=== PATIENT | male | born 1990 | race Caucasian/White ===

== ENCOUNTER 2022-07-18 13:36 | Outpatient (AMB) | payer OTHER, SELFPAY ==
[2022-07-18 13:38] VITALS: BP 118/72; PULSE 82; TEMP 36.1; O2SAT 97; BMI 26.9
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
== END 2022-07-18 14:41 | disposition home or self-care (01) ==
LOC: HO.HMGH 13:36
PROVIDERS: PCP Internal Medicine; Visit Provider Internal Medicine
DX: Z00.00 Encounter for general adult medical examination without abnormal findings (principal); M51.16 Intervertebral disc disorders with radiculopathy, lumbar region; E66.3 Overweight
CPT/HCPCS: 99385

== ENCOUNTER 2022-07-22 11:53 | Outpatient (REF) | payer OTHER, SELFPAY ==
[2022-07-22 12:17] LABS: MANUAL DIFF FLAG NO
[2022-07-22 13:53] LABS: Basophils Absolute Auto 0.1 X10*3/uL (0.0-0.2); Eosinophils Absolute Auto 0.4 X10*3/uL (0.0-0.4); Eosinophils Percent Auto 7.1 % (0-4); Hematocrit 42.3 % (42.0-52.0); Hemoglobin 14.9 g/dl (14.0-18.0); Imm Gran Abs Auto 0.01 X10*3/uL (0.00-0.03); Imm Gran Pct Auto 0.2 % (0.0-0.4); Lymphocytes Absolute Auto 1.8 X10*3/uL (1.2-4.9); Mean Corpuscular HGB Conc 35.2 g/dl (31.0-36.0); Mean Corpuscular Hemoglobin 29.5 pg (27.0-33.0); Mean Corpuscular Volume 83.8 fL (80.0-98.0); Mean Platelet Volume 9.6 fL (9.4-12.4); Monocytes Absolute Auto 0.5 X10*3/uL (0.1-1.2); Monocytes Percent Auto 8.7 % (2-11); Platelet Count 317 X10*3/uL (160-400); Red Blood Count 5.05 X10*6/uL (4.60-5.80); White Blood Count 5.8 X10*3/uL (4.8-10.8)
[2022-07-22 14:37] LABS: Alanine Aminotransferase 15 U/L (0-40); Albumin Level 4.5 g/dL (3.5-5.0); Alkaline Phosphatase 74 U/L (39-117); Anion Gap 13 (12-20); Aspartate Amino Transferase 15 U/L (5-37); Blood Urea Nitrogen 12 mg/dL (9-16); Calcium 9.4 mg/dL (8.4-10.2); Carbon Dioxide 23 mmol/L (22-29); Chloride 109 mmol/L (96-108); Cholesterol 165 mg/dL; Estimated Glomerular Filt Rate > 60; Glucose Fasting 90 mg/dL (60-99); HDL Cholesterol 35 mg/dL; LDL Cholesterol Calculated 116 mg/dl; Potassium 4.2 mmol/L (3.3-5.1); Sodium 141 mmol/L (135-145); Total Protein 7.1 g/dL (6.5-8.0); Triglycerides 71 mg/dL
[2022-07-22 14:54] LABS: Erythrocyte Sedimentation Rate 16 MM/HR (0-15)
[2022-07-22 14:56] LABS: Vitamin D 25-OH Total 30.9 ng/mL (>30)
== END 2022-07-22 11:54 | disposition home or self-care (01) ==
LOC: HO.LAB 11:53
PROVIDERS: PCP Internal Medicine; Visit Provider Internal Medicine
DX: E55.9 Vitamin D deficiency, unspecified (principal); M51.16 Intervertebral disc disorders with radiculopathy, lumbar region; E78.00 Pure hypercholesterolemia, unspecified
CPT/HCPCS: 36415; 80053; 80061; 82306; 84443; 85025; 85652

== ENCOUNTER 2022-08-17 11:01 | Outpatient (REF) | payer OTHER, SELFPAY ==
--- NOTE | ~2022-08-17 | MR_ITS ---
EXAMINATION: MR LUMBAR SPINE WITHOUT CONTRAST CLINICAL INFORMATION: Low back pain. Right leg radiculopathy. COMPARISON: MRI dated 12/07/2017. TECHNIQUE: Multiplanar, multisequence imaging was obtained. FINDINGS: VERTEBRAL BODIES AND PARASPINAL STRUCTURES: The marrow signal is homogeneous. There are no compression fractures or new subluxations. Reduced intradiscal signal and [id number] loss of disc height again evident at the L4-L5 and L5-S1 levels. The paraspinal soft tissues are unremarkable. CONUS MEDULLARIS AND CAUDA EQUINA: The distal cord, conus tip, and cauda equina nerve roots are normal. SPINAL LEVELS: L1-L2, L2-L3, and L3-L4: Well-hydrated normal appearance of the discs without central canal stenosis or foraminal narrowing. L4-L5: Disc degeneration and broad-based central disc protrusion worsened and increased in size with a small extruded component disc migrating inferiorly into the right lateral recess. Broad-based disc protrusion flattens the ventral thecal sac and compresses the L5 nerve roots bilaterally. Hypertrophic facet arthropathy again noted. Patent foramina. Mild retrosubluxation as well. L5-S1: Disc degeneration with endplate spurring again noted. Broad-based large central to left subarticular zone disc protrusion severely compresses and posteriorly displaces the left S1 nerve root, also resulting in mass effect upon the right S1 nerve root. The previous extruded component disc has resorbed since the prior study. Stable facet arthropathy. [id number] left foraminal narrowing. MR/MR lumbar spine wo con IMPRESSION: 1. Worsened broad-based central disc protrusion at the L4-L5 level with a small extruded component disc migrating inferiorly into the right lateral recess. Broad-based disc protrusion flattens the ventral thecal sac and compresses the L5 nerve roots bilaterally. 2. Chronic disc degeneration and broad-based large central to left subarticular zone disc protrusion at L5-S1 with significant compression and posterior displacement of the left S1 nerve root and mass effect upon the right S1 nerve root. The previous extruded component disc has resorbed since the prior study.
== END 2022-08-17 11:02 | disposition home or self-care (01) ==
LOC: HO.MRI 11:01
PROVIDERS: PCP Internal Medicine; Visit Provider Internal Medicine
DX: M51.16 Intervertebral disc disorders with radiculopathy, lumbar region (principal)
CPT/HCPCS: 72148

== ENCOUNTER 2022-12-28 12:37 | Outpatient (AMB) | payer OTHER, SELFPAY ==
--- NOTE | 2022-12-28 12:39 | A.OFFPC_ITS ---
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 Required: No Accompanied by: Self / Same As Patient Allergies No Known Allergies Allergy (Verified 12/28/22 14:03) Medication List - Last Reconciled 12/28/22 by Yang Carter MD No Known Home Meds Tobacco use date assessed: 12/28/22 Dental Screening Dental Screen Date: 12/28/22 Did you have a dental visit in the last 12 months?: Yes Did you have a dental problem in the last 6 months where you did not have access to dental care?: No Was dental information given to patient?: Patient has dentist HPI lumbar disc disease HPI Details Patient comes in today for his follow up visit States that his previous increased low back pain with right-sided radiation into his right lower extremity seem to have subsided all of a sudden a few weeks ago and he has not had to wear his back brace/belt lately Would like to know if his repeat lumbar spine MRI done a few months ago showed any changes or progression in his disc herniation Recalls that he was seen by Dr. Flores for the same issue sometime back in 2017 and he was advised no surgery at the time; is hoping that he can continue to avoid any surgery Would also like to know how he did on his labs done back in July 2022; states that he looked at his results on his patient portal a few months ago and there were a couple of numbers that he does not understand States that he feels okay otherwise He denies any headaches or dizziness Denies any chest pains, no SOB No nausea/vomiting, no abdominal pain No change in bowel habits noted PFSH Medical History Lumbar disc herniation with radiculopathy Surgical History No pertinent past surgical history Family History Mother No problems noted. Father No problems noted. Social History Housing: House Patient Tobacco Use Status: Never used Tobacco service: No Current occupational status: employed Cognitive needs: No Hearing needs: No Vision needs: No Questionnaire PHQ-9 Over the last 2 weeks, how often have you been bothered by any of the following problems? 1. Little interest or pleasure in doing things: not at all 2. Feeling down, depressed, or hopeless: not at all 3. Trouble falling or staying asleep, or sleeping too much: not at all 4. Feeling tired or having little energy: not at all 5. Poor appetite or overeating: not at all 6. Feeling bad about yourself - or that you are a failure or have let yourself or your family down: not at all 7. Trouble concentrating on things, such as reading the newspaper or watching television: not at all 8. Moving or speaking so slowly that other people could have noticed. Or the opposite - being so fidgety or restless that you have been moving around a lot more than usual: not at all 9. Thoughts that you would be better off or of hurting yourself in some way: not at all Total score: 0 Depression Screening Interpretation: Negative 57809 - PHQ-9 Billing: Yes Source: Developed by Drs. Lee Quijano, Chantell Thakkar, Rodney Gardner and colleagues, with an educational alcira from [employer]. Thrive Questionnaire Date Thrive assessed: 12/28/22 I am a: Patient What is your living situation today?: I have a steady place to live Within the past 12 months, did the food you bought not last and you didn't have the money to get more?: Never true Within the past 12 months, did you worry whether your food would run out before you got money to buy more?: Never true Do you have trouble paying for medicines?: No Do you have trouble getting transportation to medical appointments?: No Do you have trouble paying your heating and electricity bill?: No Do you have trouble taking care of your child, family member or friend?: No Do you have trouble with day-to-day activities such as bathing, preparing meals, shopping, managing finances, etc.?: No Are you currently unemployed and looking for a job?: No Are you interested in more education?: No Please select the resources that you would like help with: None Currently or been in a relationship where the following occur: no concerns reported AUDIT C Alcohol Use Questionnaire (AUDIT-C) 1. How often do you have a drink containing alcohol?: Never 2. How many drinks containing alcohol do you have on a typical day when you are drinking?: 1 or 2 3. How often do you have six or more drinks on one occasion?: Never Total Score: 0 Score Reviewed/Action Taken: Yes ANUP-7 AMB Questionnaire ANUP-7 Date ANUP - 7 assessed: 12/28/22 Feeling nervous, anxious, or on edge: 0 = Not at all Not being able to stop or control worryin = Not at all Worrying too much about different things: 0 = Not at all Trouble relaxin = Not at all Being so restless that it is hard to sit still: 0 = Not at all Becoming easily annoyed or irritable: 0 = Not at all Feeling afraid as if something awful might happen: 0 = Not at all Total ANUP-7 score (0-4 normal; 5-9 mild; 10-14 moderate; 15-21 severe): 0 Source: Developed by Drs. Lee Quijano, Chantell Thakkar, Rodney Gardner and colleagues, with an educational alcira from [employer]. Review of Systems Const Denies chills, Denies fatigue, Denies fever(s) and Denies headache(s) ENT Denies dysphagia, Denies dizziness, Denies otalgia, Denies headache(s), Denies neck pain, Denies odynophagia and Denies sore throat Card Denies chest pain, Denies palpitations and Denies dyspnea Resp Denies cough and Denies dyspnea GI Denies abdominal pain, Denies constipation, Denies dysphagia, Denies heartburn, Denies diarrhea, Denies nausea, Denies odynophagia and Denies vomiting Denies dysuria, Denies nocturia and Denies urinary frequency Musc Reports back pain (over the lower back but notes that this has subsided a lot lately), Denies muscle weakness, Denies neck pain and Reports radiating pain into limb (right leg - this has also calmed down a lot over the past few weeks) Neuro Denies dizziness and Denies headache(s) Endo Denies fatigue and Denies palpitations Physical exam (Primary Care) Vital Signs: Last Vital Signs Pulse 67 12/28/22 12:40 BP 110/92 H 12/28/22 12:40 Pulse Ox 98 12/28/22 12:40 Oxygen Delivery Method Room Air 12/28/22 12:40 BMI result Body Mass Index 26.9 Tobacco/Smoking Status: Tobacco use Status Tobacco use date assessed 12/28/22 12/28/22 12:44 Patient Tobacco Use Status Never used Tobacco 12/28/22 12:44 PHQ-9: PHQ-9 Score PHQ-9: Total score 0 12/28/22 12:46 Depression Screening Interpretation: Negative Thrive Assessment: Date of Thrive Assessment Date Thrive assessed 12/28/22 12/28/22 12:44 Currently or been in a relationship where the following occur: no concerns reported Const General: no acute distress and alert Neck Neck: Yes no lymphadenopathy and Yes supple Resp Auscultation: clear to auscultation bilaterally, no rales and no wheezes Cardio Rate: regular rate Rhythm: regular rhythm Heart sounds: no murmurs GI Palpation (GI): Soft to palpation and nontender Auscultation: normal bowel sounds Back/Spine/Pelvis Thoracic/Lumbar Spine: lumbar spinal tenderness and straight leg raise positive (slightly) right Skin Rashes: no rashes Extrem General: Yes no clubbing, cyanosis or edema Results Reviewed Results Reviewed: Laboratory Tests 07/22/22 12:10 WBC 5.8 Hgb 14.9 Hct 42.3 Plt Count 317 ESR 16 H Sodium 141 Potassium 4.2 Creatinine 1.06 Estimated GFR > 60 Fasting Glucose 90 Calcium 9.4 AST 15 ALT 15 Triglycerides 71 Cholesterol 165 LDL Cholesterol, Calc 116 HDL Cholesterol 35 25-OH Vitamin D Total 30.9 TSH 1.20 Assessment and Plan Assessment & Plan (1) Lumbar disc herniation with radiculopathy: Code(s): M51.16 - Intervertebral disc disorders with radiculopathy, lumbar region Plan: Results of his repeat lumbar spine MRI done in August 2022 reviewed and discussed with patient MRI revealed worsened broad-based central disc protrusion at the L4-L5 level with a small extruded component disc migrating inferiorly into the right lateral recess. Broad-based disc protrusion flattens the ventral thecal sac and compresses the L5 nerve roots bilaterally. There are chronic disc degeneration and broad-based large central to left subarticular zone disc protrusion at L5-S1 with significant compression and posterior displacement of the left S1 nerve root and mass effect upon the right S1 nerve root. The previous extruded component disc has resorbed since the prior study Patient states that his lower back and radicular symptoms have actually subsided a lot over the past few weeks and he does not need anything else at this time Have however advised that based on the findings on his repeat lumbar spine MRI done a few months ago, he should still see Dr. Flores again at least for a neurosurgery follow up and to see what he would recommend at this point; have reassured him that surgery seems unlikely an option at this time, especially since his symptoms have subsided - referral to return and follow up with Dr. Diana hernandez done He is reminded to bring with him his MRI disc for Dr. Flores to personally look at when he sees him for his appt Plan Results of his labs done back in July 2022 reviewed and discussed with patient - labs are mostly within normal limits To return in July 2023 for his next annual physical examination Orders: Referrals Neurosurgery Referral M51.16 - Intervertebral disc disorders with radiculopathy, lumbar region Coding Level of Care Code Est Pt Level 4 (73536) Diagnoses Lumbar disc herniation with radiculopathy M51.16
[2022-12-28 12:40] VITALS: BP 110/92; PULSE 67; O2SAT 98; BMI 26.9
== END 2022-12-28 13:33 | disposition home or self-care (01) ==
PROVIDERS: PCP Internal Medicine; Visit Provider Internal Medicine
DX: M51.16 Intervertebral disc disorders with radiculopathy, lumbar region (principal)
CPT/HCPCS: 99214

== ENCOUNTER 2023-05-16 14:20 | Outpatient (AMB) | payer OTHER, SELFPAY ==
[2023-05-16 14:22] VITALS: BP 100/64; PULSE 106; O2SAT 98; BMI 25.2
--- NOTE | 2023-05-16 14:22 | A.OFFPC_ITS ---
Vital Signs 05/16/23 14:22 Height 5 ft 10.8 in Weight 179 lb 6 oz BMI 25.2 BP 100/64 Blood Pressure Location Lt brachial Position Sitting Pulse 106 H Pulse Source Pulse Oximeter Pulse Oximetry (%) 98 Oxygen Delivery Method Room Air Intake Visit Reasons: Discuss sleep study Loan Coordinator Required: No Accompanied by: Self / Same As Patient Allergies No Known Allergies Allergy (Verified 05/22/23 01:47) Medication List - Last Reconciled 05/22/23 by Yang Carter MD No Known Home Meds Tobacco use date assessed: 05/16/23 Dental Screening Dental Screen Date: 05/16/23 Did you have a dental visit in the last 12 months?: Yes Did you have a dental problem in the last 6 months where you did not have access to dental care?: No Was dental information given to patient?: Patient has dentist HPI Discuss sleep study HPI Details Patient comes in today for his follow up visit States that he last saw Dr. Flores (neurosurgery) in January 2023 and that at the time, his low back pain has improved a lot with chiropractric Tx and he was reportedly advised to continue with conservative management for now and to just see Dr. Flores on an as-needed basis States that both his brother and mother work as sleep study technicians and he has been supposedly advised by his brother several times that he snores very heavily when he sleeps at night and that he can be often heard down the other side of the hallway even through closed doors, and he was recommended to get a sleep study done to check for sleep apnea Patient states that he often has trouble sleeping at night and has been smoking weed every night to help him sleep for a while now He relates (+) fatigue often but he was attributing it more to his trouble sleeping at night He denies any headaches or dizziness Denies any chest pains, no SOB No nausea/vomiting, no abdominal pain No change in bowel habits noted [facility] Medical History Overweight (BMI 25.0-29.9) Lumbar disc herniation with radiculopathy Surgical History No pertinent past surgical history Family History Mother No problems noted. Father No problems noted. Social History Housing: House Patient Tobacco Use Status: Never used Tobacco e-Cigarette/Vaping Use: Never Used service: No Current occupational status: employed Cognitive needs: No Hearing needs: No Vision needs: No Questionnaire PHQ-9 Over the last 2 weeks, how often have you been bothered by any of the following problems? 1. Little interest or pleasure in doing things: not at all 2. Feeling down, depressed, or hopeless: not at all 3. Trouble falling or staying asleep, or sleeping too much: not at all 4. Feeling tired or having little energy: not at all 5. Poor appetite or overeating: not at all 6. Feeling bad about yourself - or that you are a failure or have let yourself or your family down: not at all 7. Trouble concentrating on things, such as reading the newspaper or watching television: not at all 8. Moving or speaking so slowly that other people could have noticed. Or the opposite - being so fidgety or restless that you have been moving around a lot more than usual: not at all 9. Thoughts that you would be better off or of hurting yourself in some way: not at all Total score: 0 Depression Screening Interpretation: Negative Depression Screening Done: Yes 53522 - PHQ-9 Billing: Yes Source: Developed by Drs. Lee Quijano, Chantell Thakkar, Rodney Gardner and colleagues, with an educational alcira from [employer]. Thrive Questionnaire Date Thrive assessed: 05/16/23 I am a: Patient What is your living situation today?: I have a steady place to live Within the past 12 months, did the food you bought not last and you didn't have the money to get more?: Never true Within the past 12 months, did you worry whether your food would run out before you got money to buy more?: Never true Do you have trouble paying for medicines?: No Do you have trouble getting transportation to medical appointments?: No Do you have trouble paying your heating and electricity bill?: No Do you have trouble taking care of your child, family member or friend?: No Do you have trouble with day-to-day activities such as bathing, preparing meals, shopping, managing finances, etc.?: No Are you currently unemployed and looking for a job?: No Are you interested in more education?: No Please select the resources that you would like help with: None Currently or been in a relationship where the following occur: no concerns reported THRIVE Score: 0 AUDIT C Alcohol Use Questionnaire (AUDIT-C) 1. How often do you have a drink containing alcohol?: Never 2. How many drinks containing alcohol do you have on a typical day when you are drinking?: 1 or 2 3. How often do you have six or more drinks on one occasion?: Never Total Score: 0 Score Reviewed/Action Taken: Yes ANUP-7 AMB Questionnaire ANUP-7 Date ANUP - 7 assessed: 05/16/23 Feeling nervous, anxious, or on edge: 0 = Not at all Not being able to stop or control worryin = Not at all Worrying too much about different things: 0 = Not at all Trouble relaxin = Not at all Being so restless that it is hard to sit still: 0 = Not at all Becoming easily annoyed or irritable: 0 = Not at all Feeling afraid as if something awful might happen: 0 = Not at all Total ANUP-7 score (0-4 normal; 5-9 mild; 10-14 moderate; 15-21 severe): 0 Source: Developed by Drs. Lee Quijano, Chantell Thakkar, Rodney Gardner and colleagues, with an educational alcira from [employer]. Review of Systems Const Denies chills, Reports difficulty sleeping (wakes up often in middle of night for no particular reason), Reports fatigue, Denies fever(s) and Denies headache(s) ENT Denies dysphagia, Denies dizziness, Denies otalgia, Denies headache(s), Denies neck pain, Denies odynophagia and Denies sore throat Card Denies chest pain, Denies palpitations and Denies dyspnea Resp Denies cough and Denies dyspnea GI Denies abdominal pain, Denies constipation, Denies dysphagia, Denies heartburn, Denies diarrhea, Denies nausea, Denies odynophagia and Denies vomiting Denies dysuria, Denies nocturia and Denies urinary frequency Musc Reports back pain (on and off, over the lower back) and Denies neck pain Skin/Breast Denies rash Neuro Denies dizziness and Denies headache(s) Endo Reports fatigue and Denies palpitations Physical exam (Primary Care) Vital Signs: Last Vital Signs Pulse 106 H 05/16/23 14:22 BP 100/64 05/16/23 14:22 Pulse Ox 98 05/16/23 14:22 Oxygen Delivery Method Room Air 05/16/23 14:22 BMI result Body Mass Index 25.2 Tobacco/Smoking Status: Tobacco use Status Tobacco use date assessed 05/16/23 05/16/23 14:28 Patient Tobacco Use Status Never used Tobacco 05/16/23 14:28 e-Cigarette/Vaping Use Never Used 05/16/23 14:28 PHQ-9: PHQ-9 Score PHQ-9: Total score 0 05/16/23 15:13 Depression Screening Interpretation: Negative Thrive Assessment: Date of Thrive Assessment Date Thrive assessed 05/16/23 05/16/23 14:28 Currently or been in a relationship where the following occur: no concerns reported Const General: no acute distress and alert HENMT Ears: TM's normal bilaterally and EAC's normal Throat: Yes posterior oropharynx normal and Yes tonsils normal (no TP congestion) Neck Neck: Yes no lymphadenopathy and Yes supple Resp Auscultation: clear to auscultation bilaterally, no rales and no wheezes Cardio Rate: regular rate Rhythm: regular rhythm Heart sounds: no murmurs GI Palpation (GI): Soft to palpation and nontender Auscultation: normal bowel sounds General: Yes no CVA tenderness Back/Spine/Pelvis Back: no CVA tenderness Thoracic/Lumbar Spine: lumbar spinal tenderness Skin Rashes: no rashes Extrem General: Yes no clubbing, cyanosis or edema Assessment and Plan Assessment & Plan (1) Witnessed apneic spells: Code(s): R06.81 - Apnea, not elsewhere classified Plan: Patient scored 5 on his STOP-Bang questionnaire - high risk for RAFAEL Will refer him for a sleep study for further evaluation (2) Lumbar disc herniation with radiculopathy: Code(s): M51.16 - Intervertebral disc disorders with radiculopathy, lumbar region Plan: Repeat lumbar spine MRI done in August 2022 revealed worsened broad-based central disc protrusion at the L4-L5 level with a small extruded component disc migrating inferiorly into the right lateral recess. Broad-based disc protrusion flattens the ventral thecal sac and compresses the L5 nerve roots bilaterally. There are chronic disc degeneration and broad-based large central to left subarticular zone disc protrusion at L5-S1 with significant compression and posterior displacement of the left S1 nerve root and mass effect upon the right S1 nerve root. The previous extruded component disc has resorbed since the prior study Patient states that his lower back and radicular symptoms have subsided significantly lately He was seen by neurosurgery (Dr. Flores) in January 2023 and as his low back pain has improved a lot with chiropractric Tx at the time, he was advised to continue with conservative management for now and to just see Dr. Flores on an as-needed basis (3) Overweight (BMI 25.0-29.9): Code(s): E66.3 - Overweight Plan: Reinforced diet and weight loss; exercise as tolerated Plan To return as scheduled in July 2023 for his annual physical examination Orders: Orders RT PSG in-lab sleep study 05/16/23 R06.81 - Apnea, not elsewhere classified Coding Level of Care Code Est Pt Level 3 (41549) Diagnoses Witnessed apneic spells R06.81 Lumbar disc herniation with radiculopathy M51.16 Overweight (BMI 25.0-29.9) E66.3
== END 2023-05-16 15:18 | disposition home or self-care (01) ==
PROVIDERS: PCP Internal Medicine; Visit Provider Internal Medicine
DX: R06.81 Apnea, not elsewhere classified (principal); M51.16 Intervertebral disc disorders with radiculopathy, lumbar region; E66.3 Overweight
CPT/HCPCS: 99213

== ENCOUNTER 2023-07-11 16:00 | Outpatient (AMB) | payer OTHER, SELFPAY ==
--- NOTE | 2023-07-11 16:03 | MHC.PC.OV ---
Vital Signs 07/11/23 16:04 Height 5 ft 10.8 in Weight 181 lb 4 oz BMI 25.4 BP 110/64 Blood Pressure Location Lt brachial Position Sitting Pulse 94 Pulse Source Pulse Oximeter Pulse Oximetry (%) 97 Oxygen Delivery Method Room Air Intake Visit Reasons: PE Intake Note: Patient is here today for a physical. 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 Required: No Shipsmith: Not Required per policy Accompanied by: Self / Same As Patient Allergies No Known Allergies Allergy (Verified 07/11/23 16:54) Medication List - Last Reconciled 07/11/23 by Yang Carter MD No Known Home Meds Tobacco use date assessed: 07/11/23 Dental Screening Dental Screen Date: 05/16/23 Did you have a dental visit in the last 12 months?: No Did you have a dental problem in the last 6 months where you did not have access to dental care?: No Was dental information given to patient?: No HPI PE HPI Details Patient comes in today for his annual physical examination States that he is still experiencing recurrent low back pain He has been going to a chiropractor regularly for treatments lately and states that the treatments have been helping him Recalls that he was seen by neurosurgery in January 2023 for his low back pain and states that Dr. Flores recommended conservative therapy for now and referred to [facility] for physical therapy States that he has not yet started with physical therapy but would like to get a referral to go to PT at [facility] instead States that he feels okay otherwise He denies any headaches or dizziness Denies any chest pains, no SOB No nausea/vomiting, no abdominal pain No change in bowel habits noted He denies any acute urinary symptoms Also during his last visit a couple of months ago, he reported that both his brother and mother work as sleep study technicians and he has been supposedly advised by his brother multiple times that he snores very heavily when he sleeps at night and that he can be often heard down the other side of the hallway even through closed doors, and he was recommended to get a sleep study done to check for sleep apnea A home sleep study was ordered at the time but this was turned down by his insurance and he would like to know what would be his next step now to try to get checked for RAFAEL [facility] Medical History Overweight (BMI 25.0-29.9) Lumbar disc herniation with radiculopathy Surgical History No pertinent past surgical history Family History (Updated 07/11/23 @ 16:03 by AYAAN Dunn) Mother No problems noted. Father No problems noted. Social History Housing: House Patient Tobacco Use Status: Never used Tobacco e-Cigarette/Vaping Use: Never Used Second Hand Smoke Exposure: No service: No Current occupational status: employed Cognitive needs: No Hearing needs: No Vision needs: No Questionnaire Thrive Questionnaire Date Thrive assessed: 05/16/23 ANUP-7 AMB Questionnaire ANUP-7 Date ANUP - 7 assessed: 05/16/23 Source: Developed by Drs. Lee Quijano, Chantell Thakkar, Rodney Gardner and colleagues, with an educational alcira from [employer]. Review of Systems Const Denies chills, Reports difficulty sleeping (wakes up often in middle of night for no particular reason), Reports fatigue, Denies fever(s) and Denies headache(s) Eyes Denies blurry vision, Denies change in vision, Denies irritation and Denies itchy eyes ENT Denies dysphagia, Denies dizziness, Denies otalgia, Denies headache(s), Denies neck pain, Denies odynophagia and Denies sore throat Card Denies chest pain, Denies palpitations and Denies dyspnea Resp Denies cough, Denies dyspnea and Denies wheezing GI Denies abdominal pain, Denies constipation, Denies dysphagia, Denies heartburn, Denies diarrhea, Denies nausea, Denies odynophagia and Denies vomiting Denies dysuria, Denies nocturia and Denies urinary frequency Musc Reports back pain (on and off, over the lower back) and Denies neck pain Skin/Breast Denies rash Neuro Denies dizziness and Denies headache(s) Psych Denies anxiety Endo Reports fatigue and Denies palpitations Aller/Immun Denies itchy eyes and Denies wheezing Physical exam (Primary Care) Vital Signs: Last Vital Signs Pulse 94 07/11/23 16:04 BP 110/64 07/11/23 16:04 Pulse Ox 97 07/11/23 16:04 Oxygen Delivery Method Room Air 07/11/23 16:04 BMI result Body Mass Index 25.4 Tobacco/Smoking Status: Tobacco use Status Tobacco use date assessed 07/11/23 07/11/23 16:08 Patient Tobacco Use Status Never used Tobacco 07/11/23 16:08 e-Cigarette/Vaping Use Never Used 07/11/23 16:08 Thrive Assessment: Date of Thrive Assessment Date Thrive assessed 05/16/23 07/11/23 16:08 Const General: no acute distress and alert Orientation/consciousness: patient oriented x3 HENMT Head: Yes normocephalic and Yes atraumatic Ears: TM's normal bilaterally and EAC's normal General nose exam: No nasal discharge present Face and sinus: Yes normal facial exam and Yes sinuses nontender Teeth and gingiva: dentition normal Throat: Yes posterior oropharynx normal and Yes tonsils normal (no TP congestion) Eyes Eyelids: Yes eyelids normal Conjunctivae: conjunctivae normal Pupils: Equal, round and reactive pupils present EOM: EOMs intact bilaterally Neck Neck: Yes no lymphadenopathy and Yes supple Thyroid: Thyroid normal Resp Auscultation: clear to auscultation bilaterally, no rales and no wheezes Cardio Rate: regular rate Rhythm: regular rhythm Heart sounds: no murmurs GI Palpation (GI): Soft to palpation, nontender and No hepatosplenomegaly present Auscultation: normal bowel sounds General: Yes no CVA tenderness Back/Spine/Pelvis Back: no CVA tenderness Thoracic/Lumbar Spine: lumbar spinal tenderness Skin Lesions: no lesions Rashes: no rashes Neuro General: patient oriented x3, moves all extremities, no focal motor deficits and CN's II-XI intact bilaterally Cranial nerves: Yes Equal, round and reactive pupils present Cognition (Neuro): normal cognition Gait exam (Neuro): Normal gait present Extrem General: Yes no clubbing, cyanosis or edema Assessment and Plan Assessment & Plan (1) Annual physical exam: Code(s): Z00.00 - Encounter for general adult medical examination without abnormal findings Plan: Check labs (2) Witnessed apneic spells: Code(s): R06.81 - Apnea, not elsewhere classified Plan: Patient scored 5 on his STOP-Bang questionnaire - high risk for RAFAEL He was previously referred for a sleep study for further evaluation but this was denied by insurance Per request, will refer him instead to Sleep Medicine for further evaluation and management - patient requests to go to [facility] (3) Lumbar disc herniation with radiculopathy: Code(s): M51.16 - Intervertebral disc disorders with radiculopathy, lumbar region Plan: Repeat lumbar spine MRI done in August 2022 revealed worsened broad-based central disc protrusion at the L4-L5 level with a small extruded component disc migrating inferiorly into the right lateral recess. Broad-based disc protrusion flattens the ventral thecal sac and compresses the L5 nerve roots bilaterally. There are chronic disc degeneration and broad-based large central to left subarticular zone disc protrusion at L5-S1 with significant compression and posterior displacement of the left S1 nerve root and mass effect upon the right S1 nerve root. The previous extruded component disc has resorbed since the prior study Patient states that his lower back and radicular symptoms have subsided a lot but he still has recurrent low back pain He was seen by neurosurgery (Dr. Flores) in January 2023 and as his low back pain has improved a lot with chiropractric Tx at the time, he was advised to continue with conservative management and to just see Dr. Flores on an as-needed basis He was referred to PT by Dr. Flores back then but he never started with PT and is now requesting to be referred to PT as [facility] instead - referral done (4) Overweight (BMI 25.0-29.9): Code(s): E66.3 - Overweight Plan: Reinforced diet and weight loss; exercise as tolerated Plan Follow up in 6 months Orders: Orders Complete Blood Count Auto Diff 07/11/23 D64.9 - Anemia, unspecified, Z00.00 - Encounter for general adult medical examination without abnormal findings Lipid Panel 07/11/23 E78.00 - Pure hypercholesterolemia, unspecified, Z00.00 - Encounter for general adult medical examination without abnormal findings UA CC w/rflx Micro + Cult 07/11/23 R30.0 - Dysuria, Z00.00 - Encounter for general adult medical examination without abnormal findings Comprehensive [place]. Panel Fast 07/11/23 E78.00 - Pure hypercholesterolemia, unspecified, Z00.00 - Encounter for general adult medical examination without abnormal findings TSH reflex Free T4 07/11/23 E78.00 - Pure hypercholesterolemia, unspecified, Z00.00 - Encounter for general adult medical examination without abnormal findings Vitamin D 25-OH Total 07/11/23 E55.9 - Vitamin D deficiency, unspecified, Z00.00 - Encounter for general adult medical examination without abnormal findings Referrals Physiatry Referral M51.16 - Intervertebral disc disorders with radiculopathy, lumbar region, M54.50 - Low back pain, unspecified Sleep Medicine Referral G47.33 - Obstructive sleep apnea (adult) (pediatric), R06.81 - Apnea, not elsewhere classified, G47.34 - Idiopathic sleep related nonobstructive alveolar hypoventilation Coding Level of Care Code Est Pt Prev Care 18-39y(11733) Diagnoses Annual physical exam Z00.00 Witnessed apneic spells R06.81 Lumbar disc herniation with radiculopathy M51.16 Overweight (BMI 25.0-29.9) E66.3
[2023-07-11 16:04] VITALS: BP 110/64; PULSE 94; O2SAT 97; BMI 25.4
== END 2023-07-11 17:15 | disposition home or self-care (01) ==
PROVIDERS: PCP Internal Medicine; Visit Provider Internal Medicine
DX: Z00.00 Encounter for general adult medical examination without abnormal findings (principal); R06.81 Apnea, not elsewhere classified; M51.16 Intervertebral disc disorders with radiculopathy, lumbar region; E66.3 Overweight
CPT/HCPCS: 99395

== ENCOUNTER 2024-01-12 12:19 | Outpatient (REF) | payer OTHER, SELFPAY | END 2024-01-12 12:20 | disposition home or self-care (01) | LOC: HO.LAB 12:19 | PROVIDERS: PCP Internal Medicine; Visit Provider Internal Medicine | DX: Z13.89 Encounter for screening for other disorder (principal) ==

== ENCOUNTER 2024-04-05 15:52 | Outpatient (AMB) | payer OTHER, SELFPAY ==
[2024-04-05 16:07] VITALS: BP 100/76; PULSE 81; TEMP 37.1; O2SAT 98; BMI 25.4
--- NOTE | 2024-04-05 16:07 | A.OFFPC_ITS ---
Vital Signs 04/05/24 16:07 Height 5 ft 10.8 in Weight 181 lb 2 oz BMI 25.4 BP 100/76 Blood Pressure Location Lt brachial Position Sitting Pulse 81 Pulse Source Pulse Oximeter Temp 98.8 F Temp Source Oral Pulse Oximetry (%) 98 Oxygen Delivery Method Room Air Intake Visit Reasons: Possible infection in nose Ms Sql Developer Required: No Accompanied by: Self / Same As Patient Allergies No Known Allergies Allergy (Verified 04/06/24 09:11) Medication List - Last Reconciled 04/06/24 by Yang Carter MD fluticasone propionate 50 mcg/actuation 1 spray intranasal BID 14 days mupirocin 2% 1 appl topical TID sulfamethoxazole-trimethoprim 800-160 mg (Bactrim DS) 1 tab PO BID 10 days trazodone 50 mg PO BEDTIME PRN Tobacco use date assessed: 04/05/24 Dental Screening Dental Screen Date: 04/05/24 Did you have a dental visit in the last 12 months?: No Did you have a dental problem in the last 6 months where you did not have access to dental care?: No Was dental information given to patient?: No HPI Possible infection in nose HPI Details The patient is a 33-year-old male with past medical history of apnea and lumbar disc herniation with radiculopathy. He is presenting for a sick visit The reports that he has a skin area on his nose that needs antibiotic ointment Reports that this started due to his nasal congestion that led to a irritated area in his right nostril and slightly below the right nostril. Reports that this has been going on for 3 months now; he picked the area, now it is scabbed over does not seems to be healing. He reports intermittently picking at it; reports that he came in because it has been going on for too long. Patient denies any fever or chills. Denies shortness or breath, denies cough, denies chest pain, denies heart palpitation, denies dizziness [facility] Medical History Overweight (BMI 25.0-29.9) Lumbar disc herniation with radiculopathy Surgical History No pertinent past surgical history Family History Mother No problems noted. Father No problems noted. Social History Housing: House Patient Tobacco Use Status: Never used Tobacco e-Cigarette/Vaping Use: Never Used Second Hand Smoke Exposure: No service: No Current occupational status: employed Cognitive needs: No Hearing needs: No Vision needs: No Questionnaire PHQ-9 Over the last 2 weeks, how often have you been bothered by any of the following problems? 1. Little interest or pleasure in doing things: not at all 2. Feeling down, depressed, or hopeless: not at all 3. Trouble falling or staying asleep, or sleeping too much: not at all 4. Feeling tired or having little energy: not at all 5. Poor appetite or overeating: not at all 6. Feeling bad about yourself - or that you are a failure or have let yourself or your family down: not at all 7. Trouble concentrating on things, such as reading the newspaper or watching te levision: not at all 8. Moving or speaking so slowly that other people could have noticed. Or the opposite - being so fidgety or restless that you have been moving around a lot more than usual: not at all 9. Thoughts that you would be better off or of hurting yourself in some way: not at all Total score: 0 Depression Screening Interpretation: Negative Depression Screening Done: Yes 37086 - PHQ-9 Billing: Yes Source: Developed by Drs. Lee Quijano, Chantell Thakkar, Rodney Gardner and colleagues, with an educational alcira from [employer]. Thrive Questionnaire Date Thrive assessed: 04/05/24 I am a: Patient What is your living situation today?: I have a steady place to live Within the past 12 months, did the food you bought not last and you didn't have the money to get more?: Never true Within the past 12 months, did you worry whether your food would run out before you got money to buy more?: Never true Do you have trouble paying for medicines?: No Do you have trouble getting transportation to medical appointments?: No Do you have trouble paying your heating and electricity bill?: No Do you have trouble taking care of your child, family member or friend?: No Do you have trouble with day-to-day activities such as bathing, preparing meals, shopping, managing finances, etc.?: No Are you currently unemployed and looking for a job?: No Are you interested in more education?: No Please select the resources that you would like help with: None Currently or been in a relationship where the following occur: No concerns reported THRIVE Score: 0 AUDIT C Alcohol Use Questionnaire (AUDIT-C) 1. How often do you have a drink containing alcohol?: Never 2. How many drinks containing alcohol do you have on a typical day when you are drinking?: 1 or 2 3. How often do you have six or more drinks on one occasion?: Never Total Score: 0 Score Reviewed/Action Taken: Yes ANUP-7 AMB Questionnaire ANUP-7 Date ANUP - 7 assessed: 04/05/24 Feeling nervous, anxious, or on edge: 0 = Not at all Not being able to stop or control worryin = Not at all Worrying too much about different things: 0 = Not at all Trouble relaxin = Not at all Being so restless that it is hard to sit still: 0 = Not at all Becoming easily annoyed or irritable: 0 = Not at all Feeling afraid as if something awful might happen: 0 = Not at all Total ANUP-7 score (0-4 normal; 5-9 mild; 10-14 moderate; 15-21 severe): 0 Source: Developed by Drs. Lee Quijano, Chantell Thakkar, Rodney Gardner and colleagues, with an educational alcira from [employer]. ANUP-7 Assessment Billing ANUP-7 Assessment Tool: ANUP-7 Assessment 17263 Review of Systems Const Details: Const Denies chills, Denies fatigue, Denies fever(s), Denies headache(s) and Denies weakness ENT Denies dizziness and Denies headache(s) reports recurrent nasal congestion Card Denies chest pain, Denies lightheadedness, Denies dyspnea and Denies other (Palpitations) Resp Denies cough, Denies dyspnea, Denies wheezing and Denies other ( shortness of breath) GI Denies abdominal pain, Denies melena, Denies hematochezia, Denies change in bowel habits, Denies dyspepsia and Denies nausea Denies hematuria and Denies dysuria Musc Denies abnormal gait, Denies myalgias, Denies arthralgias, Denies numbness and Denies tingling Skin/Breast Reports skin irritation that is now scabbed over and look infected within right nostril and below right nostril Neuro Denies abnormal gait, Denies dizziness, Denies headache(s), Denies memory loss, Denies numbness, Denies Sensory deficit (Neuro), Denies tingling and Denies weakness Psych Denies anxiety, Denies depression, Denies memory loss Endo Denies cold intolerance, Denies fatigue, Denies heat intolerance, Denies polydipsia and Denies polyuria Aller/Immun Denies wheezing ENT Details: (+) edema of the entire right nasal area with a large abscess involving the entire right nasal cavity and on the right nasolabial fold as well; there is minimal purulent drainage from the right nasal cavity Physical exam (Primary Care) Vital Signs: Last Vital Signs Temp 98.8 F 04/05/24 16:07 Pulse 81 04/05/24 16:07 BP 100/76 04/05/24 16:07 Pulse Ox 98 04/05/24 16:07 Oxygen Delivery Method Room Air 04/05/24 16:07 BMI result Body Mass Index 25.4 Tobacco/Smoking Status: Tobacco use Status Tobacco use date assessed 04/05/24 04/05/24 16:14 Patient Tobacco Use Status Never used Tobacco 04/05/24 16:14 e-Cigarette/Vaping Use Never Used 04/05/24 16:14 PHQ-9: PHQ-9 Score PHQ-9: Total score 0 04/05/24 18:25 Depression Screening Interpretation: Negative Thrive Assessment: Date of Thrive Assessment Date Thrive assessed 04/05/24 04/05/24 16:14 Currently or been in a relationship where the following occur: No concerns reported Const Other: General: no acute distress and well developed Nutritional Appearance: well nourished Orientation/consciousness: patient oriented x3 HENMT Head: Yes normocephalic and Yes atraumatic, brown raised scabbed-appearing area below right nostril, similar scabbed area at the entrance of right nostril inferiorly. Bilateral nare passages bright pink with crushed areas more in right than left. Eyes General: appearance normal, both eyes and all related structures Pupils: Equal, round and reactive pupils present EOM: EOMs intact bilaterally Resp Effort & Inspection: normal respiratory effort Auscultation: clear to auscultation bilaterally Cardio Rate: regular rate Rhythm: regular rhythm Heart sounds: S1 normal heart sound present, S2 normal heart sound present, no gallops, no murmurs and no rubs Skin brown raised scabbed area below right nostril, similar scabbed area at the entrance of right nostril inferiorly. Neuro General: patient oriented x3, gait normal and no focal neuro deficit Psych Appearance: grossly normal Affect: normal affect Attitude: cooperative Thought process: Normal thought process present HENMT Other: (+) abscess involving the entire right nasal area/cavity, with minimal purulent drainage noted in the right nares; there is also an abscess over the right na solabial fold with a large scab on top Coding Level of Care Code Est Pt Level 3 (06105) Diagnoses Nasal abscess J34.0 Nasal congestion R09.81 Additional Codes ANUP-7 Assessment Billing - ANUP-7 Assessment Tool: ANUP-7 Assessment 53843 ([id number]) PHQ-9 - 54488 - PHQ-9 Billing: Yes ([id number]) Assessment & Plan Assessment & Plan (1) Nasal abscess: Code(s): J34.0 - Abscess, furuncle and carbuncle of nose Category: Medical Plan: Reports area started has irritation and he picked it and it scabbed over Reports intermittently picking it this area that has been there for about 3 months now Raised brown area inner right nostril extending just below right nostril Mupirocin ointment and bactrim DS BIDX10 days ordered Follow in two weeks-the patient informed it keep close eye on area and to follow sooner for any concerns (2) Nasal congestion: Code(s): R09.81 - Nasal congestion Category: Medical Plan: Reports using a nasal spray in the past-has not for a while Fluticasone propionate 50mcg 1 spray in each nostril BID X14 days then as needed Plan Follow up in 2 weeks Medications: New mupirocin 2% 1 appl topical TID 50 grams 0RF fluticasone propionate 50 mcg/actuation administer into each nostril 1 spray intranasal BID 14 days 16 grams 0RF R09.81 - Nasal congestion sulfamethoxazole-trimethoprim 800-160 mg (Bactrim DS) 1 tab PO BID 10 days 20 tabs 0RF
== END 2024-04-05 16:46 | disposition home or self-care (01) ==
PROVIDERS: PCP Internal Medicine
DX: J34.0 Abscess, furuncle and carbuncle of nose (principal); R09.81 Nasal congestion

== ENCOUNTER → 2024-04-05 15:52 | Outpatient (BNVA) | payer OTHER, SELFPAY | PROVIDERS: PCP Internal Medicine | DX: J34.0 Abscess, furuncle and carbuncle of nose (principal); R09.81 Nasal congestion | CPT/HCPCS: 96127; 99212 ==

== ENCOUNTER 2024-04-23 13:48 | Outpatient (AMB) | payer OTHER, SELFPAY ==
[2024-04-23 13:53] VITALS: BP 104/78; PULSE 86; TEMP 36.8; O2SAT 99; BMI 25.0
--- NOTE | 2024-04-23 13:53 | MHC.PC.OV ---
Vital Signs 04/23/24 13:53 Height 5 ft 10.8 in Weight 178 lb BMI 25.0 BP 104/78 Blood Pressure Location Lt brachial Position Sitting Pulse 86 Pulse Source Pulse Oximeter Temp 98.2 F Temp Source Oral Pulse Oximetry (%) 99 Oxygen Delivery Method Room Air Intake Visit Reasons: nose skin lesion Resin Shaver Required: No Accompanied by: Self / Same As Patient Allergies No Known Allergies Allergy (Verified 04/23/24 21:29) Medication List - Last Reconciled 04/23/24 by UMESH Vora doxycycline hyclate 100 mg PO BID 10 days fluticasone propionate 50 mcg/actuation 1 spray intranasal BID 14 days mupirocin 2% 1 appl topical TID trazodone 50 mg PO BEDTIME PRN Tobacco use date assessed: 04/23/24 Dental Screening Dental Screen Date: 04/23/24 Did you have a dental visit in the last 12 months?: No Did you have a dental problem in the last 6 months where you did not have access to dental care?: No Was dental information given to patient?: No HPI nose skin lesion HPI Details The patient is a 33-year-old male with significant history of nasal abscess, nasal congestion Patient is presenting for his 2 weeks follow up appointment for nasal abscess The scabbed over area below right nare-resolved Inner right nare cysts-appearing area remains The patient reports that he finished the oral antibiotic but has not used the mupirocin ointment for over a week now Reports that his dog was sick so he stopped attending to himself Patient denies fevers, denies any pain, or any unusual symptoms. Patient reports that he was told that he he might have diabetes and is requesting testing A1c done in office was 5.3 [facility] Medical History Overweight (BMI 25.0-29.9) Lumbar disc herniation with radiculopathy Surgical History No pertinent past surgical history Family History Mother No problems noted. Father No problems noted. Social History Housing: House Patient Tobacco Use Status: Never used Tobacco e-Cigarette/Vaping Use: Never Used Second Hand Smoke Exposure: No service: No Current occupational status: employed Cognitive needs: No Hearing needs: No Vision needs: No Questionnaire PHQ-9 Over the last 2 weeks, how often have you been bothered by any of the following problems? 1. Little interest or pleasure in doing things: not at all 2. Feeling down, depressed, or hopeless: not at all 3. Trouble falling or staying asleep, or sleeping too much: not at all 4. Feeling tired or having little energy: not at all 5. Poor appetite or overeating: not at all 6. Feeling bad about yourself - or that you are a failure or have let yourself or your family down: not at all 7. Trouble concentrating on things, such as reading the newspaper or watching television: not at all 8. Moving or speaking so slowly that other people could have noticed. Or the opposite - being so fidgety or restless that you have been moving around a lot more than usual: not at all 9. Thoughts that you would be better off or of hurting yourself in some way: not at all Total score: 0 Depression Screening Interpretation: Negative Depression Screening Done: Yes 27691 - PHQ-9 Billing: Yes Source: Developed by Drs. Lee Quijano, Chantell Thakkar, Rodney Gardner and colleagues, with an educational alcira from [employer]. Thrive Questionnaire Date Thrive assessed: 04/23/24 I am a: Patient What is your living situation today?: I have a steady place to live Within the past 12 months, did the food you bought not last and you didn't have the money to get more?: Never true Within the past 12 months, did you worry whether your food would run out before you got money to buy more?: Never true Do you have trouble paying for medicines?: No Do you have trouble getting transportation to medical appointments?: No Do you have trouble paying your heating and electricity bill?: No Do you have trouble taking care of your child, family member or friend?: No Do you have trouble with day-to-day activities such as bathing, preparing meals, shopping, managing finances, etc.?: No Are you currently unemployed and looking for a job?: No Are you interested in more education?: No Please select the resources that you would like help with: None Currently or been in a relationship where the following occur: No concerns reported THRIVE Score: 0 AUDIT C Alcohol Use Questionnaire (AUDIT-C) 1. How often do you have a drink containing alcohol?: Never 2. How many drinks containing alcohol do you have on a typical day when you are drinking?: 1 or 2 3. How often do you have six or more drinks on one occasion?: Never Total Score: 0 Score Reviewed/Action Taken: Yes ANUP-7 AMB Questionnaire ANUP-7 Date ANUP - 7 assessed: 04/23/24 Feeling nervous, anxious, or on edge: 0 = Not at all Not being able to stop or control worryin = Not at all Worrying too much about different things: 0 = Not at all Trouble relaxin = Not at all Being so restless that it is hard to sit still: 0 = Not at all Becoming easily annoyed or irritable: 0 = Not at all Feeling afraid as if something awful might happen: 0 = Not at all Total ANUP-7 score (0-4 normal; 5-9 mild; 10-14 moderate; 15-21 severe): 0 Source: Developed by Drs. Lee Quijano, Chantell Thakkar, Rodney Gardner and colleagues, with an educational alcira from [employer]. ANUP-7 Assessment Billing ANUP-7 Assessment Tool: ANUP-7 Assessment 69031 Review of Systems Const Details: Denies chills, Denies fatigue, Denies fever(s), Denies headache(s) and Denies weakness HEENT Denies change in vision, Denies dizziness, Denies headache(s), Denies hearing loss, + recurrent nasal congestion, Denies sinus pain, Denies sinus pressure and Denies sore throat Card Denies chest pain, Denies lightheadedness, Denies dyspnea and Denies other (palpitations) Resp Denies cough, Denies dyspnea and Denies wheezing GI Denies abdominal pain, Denies melena, Denies hematochezia, Denies change in bowel habits, Denies dyspepsia and Denies nausea Denies hematuria and Denies dysuria Musc Denies abnormal gait, Denies myalgias, Denies arthralgias, Denies numbness and Denies tingling Skin/Breast Denies rash, Denies unusual bruising and Denies wounds Neuro Denies abnormal gait, Denies dizziness, Denies headache(s), Denies memory loss, Denies numbness, Denies Sensory deficit (Neuro), Denies tingling and Denies weakness Psych Denies anxiety, Denies depression and Denies memory loss Endo Denies cold intolerance, Denies fatigue, Denies heat intolerance, Denies polydipsia and Denies polyuria Justino/Lymph Denies easy bleeding and Denies easy bruising Aller/Immun Denies wheezing Physical exam (Primary Care) Vital Signs: Last Vital Signs Temp 98.2 F 04/23/24 13:53 Pulse 86 04/23/24 13:53 BP 104/78 04/23/24 13:53 Pulse Ox 99 04/23/24 13:53 Oxygen Delivery Method Room Air 04/23/24 13:53 BMI result Body Mass Index 25.0 Tobacco/Smoking Status: Tobacco use Status Tobacco use date assessed 04/23/24 04/23/24 13:59 Patient Tobacco Use Status Never used Tobacco 04/23/24 13:59 e-Cigarette/Vaping Use Never Used 04/23/24 13:59 PHQ-9: PHQ-9 Score PHQ-9: Total score 0 04/23/24 14:29 Depression Screening Interpretation: Negative Thrive Assessment: Date of Thrive Assessment Date Thrive assessed 04/23/24 04/23/24 13:59 Currently or been in a relationship where the following occur: No concerns reported Const Other: General: no acute distress, well developed, alert and awake Nutritional Appearance: well nourished Orientation/consciousness: patient oriented x3 HENMT Head: Yes normocephalic and Yes atraumatic Ears: hearing grossly normal bilaterally and TM's normal bilaterally General nose exam: + right nare with purulent pocket Mouth: Normal oral and palatal mucosa present and moist mucous membranes Teeth and gingiva: dentition normal Throat: Yes oropharynx normal Eyes Pupils: Equal, round and reactive pupils present and Pupil accommodation reflex normal EOM: EOMs intact bilaterally Neck Neck: Yes normal visual inspection, Yes no lymphadenopathy and Yes trachea midline Thyroid: Thyroid normal Carotids: no bruits Lymphatic: no lymphadenopathy noted Chest Chest palpation & inspection: normal inspection of the chest Resp Effort & Inspection: normal respiratory effort Auscultation: clear to auscultation bilaterally Cardio Rate: regular rate Rhythm: regular rhythm Heart sounds: S1 normal heart sound present, S2 normal heart sound present, no gallops, no murmurs and no rubs Bruits: no abdominal aortic bruits and no carotid bruits GI Palpation (GI): abdomen soft and nontender Auscultation: normal bowel sounds General: Yes no CVA tenderness Back/Spine/Pelvis Back: no CVA tenderness Skin General: warm and dry. Normal skin color. Normal skin turgor Lesions: +inner right nare purulent pocket Rashes: no rashes Trauma: no lacerations or abrasions Wounds: no wounds Nails: normal Neuro General: patient oriented x3 Cranial nerves: Yes Equal, round and reactive pupils present Cognition (Neuro): normal cognition Gait exam (Neuro): Normal gait present Psych Appearance: grossly normal Affect: normal affect Attitude: cooperative Thought process: Normal thought process present Results AMB Hemoglobin A1c AMB Hemoglobin A1c 5.3 % Last Edit by AYAAN Russo on 04/23/24 14:29 Results Reviewed Results Reviewed: Laboratory Last Values Hgb A1c (Clinic) 5.3 % (4.0-6.0) 04/23/24 14:25 Coding Level of Care Code Est Pt Level 3 (84261) Diagnoses Nasal abscess J34.0 Nasal congestion R09.81 Additional Codes PHQ-9 - 91240 - PHQ-9 Billing: Yes ([id number]) ANUP-7 Assessment Billing - ANUP-7 Assessment Tool: ANUP-7 Assessment 22411 ([id number]) Time Spent (min) 25 Assessment & Plan Assessment & Plan (1) Nasal abscess: Code(s): J34.0 - Abscess, furuncle and carbuncle of nose Category: Medical Plan: Doxycycline 100 mg b.i.d. times 10 days ordered mupirocin 2% ointment refilled ENT referral placed (2) Nasal congestion: Code(s): R09.81 - Nasal congestion Category: Medical Plan: refilled nasal spray Orders: Orders AMB Hemoglobin A1c Today Z13.9 - Encounter for screening, unspecified Referrals Ear/Nose/Throat Referral J34.0 - Abscess, furuncle and carbuncle of nose Medications: New doxycycline hyclate 100 mg PO BID 20 tabs 0RF 10 days J34.0 - Abscess, furuncle and carbuncle of nose Refilled mupirocin 2% 1 appl topical TID 50 grams 0RF fluticasone propionate 50 mcg/actuation administer into each nostril 1 spray intranasal BID 16 grams 0RF 14 days R09.81 - Nasal congestion
== END 2024-04-23 14:29 | disposition home or self-care (01) ==
PROVIDERS: PCP Internal Medicine
DX: Z13.9 Encounter for screening, unspecified (principal)

== ENCOUNTER → 2024-04-23 13:48 | Outpatient (BNVA) | payer OTHER, SELFPAY | PROVIDERS: PCP Internal Medicine | DX: J34.0 Abscess, furuncle and carbuncle of nose (principal); R09.81 Nasal congestion | CPT/HCPCS: 83036; 96127; 99212 ==

== ENCOUNTER 2024-11-13 14:00 | Outpatient (AMB) | payer OTHER, SELFPAY ==
[2024-11-13 14:03] VITALS: BP 116/60; PULSE 102; RESP 18; O2SAT 96; BMI 26.9
--- NOTE | 2024-11-13 14:03 | A.OFFPC_ITS ---
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 Ride Assembly Required: No Accompanied by: Self / Same As Patient Allergies No Known Allergies Allergy (Verified 11/13/24 14:29) Medication List - Last Reconciled 11/13/24 by UMESH Vora doxycycline hyclate 100 mg PO BID 10 days mupirocin 2% 1 appl topical TID Tobacco use date assessed: 11/13/24 Dental Screening Dental Screen Date: 11/13/24 Did you have a dental visit in the last 12 months?: No Did you have a dental problem in the last 6 months where you did not have access to dental care?: No Was dental information given to patient?: No HPI annual exam HPI Details Patient is a 34-year-old male presenting for annual physical Dentist:He have not yet, trying to find a new one Eye:Reports more than 5 years Snellen: Right: Left: Corrected vision: Reports that his glasses still works STI screening: Colonoscopy:n/a Pap Smer:n/a PHQ-9: Flu:Reports that he usually does not take the flu vaccine COVID: declines Tdap: decline Diet:Regular Exercise:Reports walking for now The patient is a 34-year-old male presenting for annual physical. He has ongoing abscess to right nostril which has been treated with oral antibiotics and mupirocin ointments ointment topically. The patient was referred to ENT. The ENT specialist suggest further biopsy under anesthesia, which the patient declined. A biopsy was performed, returning negative prior. The skin condition, identified as eczema with a possible fungal component from scratching area opened. Per patient, the area began with small bumps that became itchy and worsened over time. The patient reports using a cream and experiencing itching primarily at night. The patient has a history of intermittent diarrhea, which he attributes to dietary factors. He denies any significant chest pain or other gastrointestinal symptoms. The patient has not had a recent dental check-up due to his dentist's residential and is in the process of finding a new one. He wears glasses but has not had an eye examination in several years. The patient reports a regular diet and walks his dog daily as his primary form of exercise. [facility], LAT[facility] Medical History Overweight (BMI 25.0-29.9) Lumbar disc herniation with radiculopathy Surgical History No pertinent past surgical history Family History Mother No problems noted. Father No problems noted. Social History Housing: House Patient Tobacco Use Status: Never used Tobacco e-Cigarette/Vaping Use: Never Used Second Hand Smoke Exposure: No service: No Current occupational status: employed Cognitive needs: No Hearing needs: No Vision needs: No Questionnaire PHQ-9 Over the last 2 weeks, how often have you been bothered by any of the following problems? 1. Little interest or pleasure in doing things: not at all 2. Feeling down, depressed, or hopeless: not at all 3. Trouble falling or staying asleep, or sleeping too much: not at all 4. Feeling tired or having little energy: not at all 5. Poor appetite or overeating: not at all 6. Feeling bad about yourself - or that you are a failure or have let yourself or your family down: not at all 7. Trouble concentrating on things, such as reading the newspaper or watching television: not at all 8. Moving or speaking so slowly that other people could have noticed. Or the opposite - being so fidgety or restless that you have been moving around a lot more than usual: not at all 9. Thoughts that you would be better off or of hurting yourself in some way: not at all Total score: 0 Depression Screening Interpretation: Negative Depression Screening Done: Yes Source: Developed by Drs. Lee Quijano, Chantell Thakakr, Rodney Gardner and colleagues, with an educational alcira from [employer]. Thrive Questionnaire Date Thrive assessed: 11/13/24 I am a: Patient What is your living situation today?: I choose not to answer this question Within the past 12 months, did the food you bought not last and you didn't have the money to get more?: I choose not to answer this question Within the past 12 months, did you worry whether your food would run out before you got money to buy more?: I choose not to answer this question Do you have trouble paying for medicines?: No Do you have trouble getting transportation to medical appointments?: I choose not to answer this question Do you have trouble paying your heating and electricity bill?: I choose not to answer this question Do you have trouble taking care of your child, family member or friend?: I choose not to answer this question Do you have trouble with day-to-day activities such as bathing, preparing meals, shopping, managing finances, etc.?: I choose not to answer this question Are you currently unemployed and looking for a job?: I choose not to answer this question Are you interested in more education?: I choose not to answer this question Please select the resources that you would like help with: None Currently or been in a relationship where the following occur: I choose not to answer THRIVE Score: 0 AUDIT C Alcohol Use Questionnaire (AUDIT-C) 1. How often do you have a drink containing alcohol?: Never 3. How often do you have six or more drinks on one occasion?: Never Total Score: 0 ANUP-7 AMB Questionnaire ANUP-7 Date ANUP - 7 assessed: 11/13/24 Feeling nervous, anxious, or on edge: 0 = Not at all Not being able to stop or control worryin = Not at all Worrying too much about different things: 0 = Not at all Trouble relaxin = Not at all Being so restless that it is hard to sit still: 0 = Not at all Becoming easily annoyed or irritable: 0 = Not at all Feeling afraid as if something awful might happen: 0 = Not at all Total ANUP-7 score (0-4 normal; 5-9 mild; 10-14 moderate; 15-21 severe): 0 Source: Developed by Drs. Lee Quijano, Chantell Thakkar, Rodney Gardner and colleagues, with an educational alcira from [employer]. Review of Systems Const Denies headache(s) Eyes Denies loss of vision ENT Denies vertigo, Denies dizziness, Denies headache(s), Reports nasal congestion, Reports nasal obstruction (Right nostril abscess) and Denies sore throat Card Denies chest pain, Denies leg edema and Denies lightheadedness Resp Denies cough, Denies hemoptysis and Denies wheezing GI Denies abdominal pain, Denies melena, Denies constipation, Denies diarrhea and Denies vomiting Denies dysuria, Denies urinary frequency and Denies urinary urgency Musc Reports back pain (Lower back on and off), Denies arthralgias, Denies joint swelling, Denies numbness and Denies tingling Skin/Breast Reports rash (itchy rash to hands and between fingers) Neuro Denies Abnormal speech present, Denies behavioral changes, Denies vertigo, Denies dizziness, Denies headache(s), Denies loss of vision, Denies memory loss, Denies numbness and Denies tingling Psych Denies anxiety, Denies behavioral changes, Denies depression, Denies memory loss and Denies panic attacks Justino/Lymph Denies easy bleeding and Denies easy bruising Aller/Immun Denies wheezing Physical exam (Primary Care) Vital Signs: Last Vital Signs Pulse 102 H 11/13/24 14:03 Resp 18 11/13/24 14:03 BP 116/60 11/13/24 14:03 Pulse Ox 96 11/13/24 14:03 Oxygen Delivery Method Room Air 11/13/24 14:03 BMI result Body Mass Index 26.9 Tobacco/Smoking Status: Tobacco use Status Tobacco use date assessed 11/13/24 11/13/24 14:07 Patient Tobacco Use Status Never used Tobacco 11/13/24 14:07 e-Cigarette/Vaping Use Never Used 11/13/24 14:07 PHQ-9: PHQ-9 Score PHQ-9: Total score 0 12/09/24 14:54 Depression Screening Interpretation: Negative Thrive Assessment: Date of Thrive Assessment Date Thrive assessed 11/13/24 11/13/24 14:07 Currently or been in a relationship where the following occur: I choose not to answer Const General: healthy appearing, no acute distress, alert and awake Nutritional Appearance: well nourished Orientation/consciousness: oriented to person, oriented to place and oriented to time HENMT Ears: TM's normal bilaterally General nose exam: Abnormal external nose present (Scabbed over area) other (Right nasal abscess ongoing) and Abnormal nasal septum present perforated Eyes Conjunctivae: conjunctivae normal Sclerae: sclerae normal Pupils: Equal, round and reactive pupils present Neck Neck: Yes no lymphadenopathy and Yes no JVD Thyroid: Thyroid normal Carotids: no bruits Resp Effort & Inspection: normal respiratory effort and not tachypneic Auscultation: no crackles, no rales, no rhonchi and no wheezes Cardio Rate: regular rate Rhythm: regular rhythm Heart sounds: S1 normal heart sound present, S2 normal heart sound present, no murmurs and normal S1 and S2 GI Palpation (GI): Soft to palpation, nontender, no hepatomegaly and no splenomegaly Auscultation: normal bowel sounds General: Yes no CVA tenderness Back/Spine/Pelvis Back: no CVA tenderness Skin General skin exam: dry skin Lesions: lesion noted (right nasal abscess extending down the right side of face) Rashes: rashes noted (Fungal rash between fingers) Neuro General: oriented to person, oriented to place and oriented to time Cranial nerves: Yes Equal, round and reactive pupils present Speech: No Abnormal speech present Gait exam (Neuro): Normal gait present Motor exam (neuro): 5/5 motor strength present throughout and no tremor noted Deep tendon reflexes (DTR's): Right triceps reflex intensity grade: 2+, Left triceps reflex intensity grade: 2+, Rt Biceps (C5, C6): 2+, Left biceps reflex intensity grade: 2+, Right brachioradialis reflex intensity grade: 2+, Left brachioradialis reflex intensity grade: 2+, Right patellar reflex intensity grade: 2+ and Left patellar reflex intensity grade: 2+ Extrem Right upper extremity: full ROM Left upper extremity: full ROM Right lower extremity: full ROM; no edema Left lower extremity: full ROM; no edema Psych Mental Status: mental status grossly normal Speech and movement: Normal speech and movement present Affect: normal affect Attitude: cooperative Thought process: Normal thought process present Coding Level of Care Code Est Pt Prev Care 18-39y(29938) Diagnoses Annual physical exam Z00.00 Overweight (BMI 25.0-29.9) E66.3 Nasal abscess J34.0 Nasal congestion R09.81 Low back pain, unspecified back pain laterality, unspecified chronicity, unspecified whether sciatica present M54.50 Back pain laterality: unspecified Chronicity: unspecified Sciatica presence: unspecified whether sciatica present Lumbar disc herniation with radiculopathy M51.16 Perforation of nasal septum J34.89 Nasal ulcer J34.0 Tinea pedis of both feet B35.3 Laterality: bilateral RAFAEL (obstructive sleep apnea) G47.33 Time Spent (min) 39 Assessment & Plan Assessment & Plan (1) Annual physical exam: Code(s): Z00.00 - Encounter for general adult medical examination without abnormal findings Category: Medical Plan: Preventative guidelines reviewed with the patient. No recent labs to review. Encouraged the patient to get preordered existing labs completed as soon as he can to further evaluate his condition. (2) Overweight (BMI 25.0-29.9): Code(s): E66.3 - Overweight Category: Medical Plan: Discussed lifestyle modifications including dietary changes and physical activity (3) Nasal abscess: Code(s): J34.0 - Abscess, furuncle and carbuncle of nose Category: Medical Plan: Patient biopsy shows inflammation and no carcinoma. However his physical exam is highly suspicious due to the progression from initial evaluation. ENT strongly recommend biopsy under anesthesia with anticipated tissue specimen for microbiology, parasite, cytology as his nasal condition is undefined. Differentials per ENT malignancy despite the negative biopsy, infection such as MRSA, possible vasculitis although previous autoimmune panels did not such as this. 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 Continue mupirocin and doxycycline as ordered by ENT (4) Nasal congestion: Code(s): R09.81 - Nasal congestion Category: Medical Plan: Same as above (5) Low back pain: Code(s): M54.50 - Low back pain, unspecified Category: Medical Qualifiers: Back pain laterality: unspecified Chronicity: unspecified Sciatica presence: unspecified whether sciatica present Qualified Code(s): M54.50 - Low back pain, unspecified Plan: Avoid bed rest (including sitting in bed) and to simply limit painful activities; improvement usually occurs within a few weeks May use cool packs; may alternate cold and hot packs Exercises a rocha (e.g., walking, swimming, cycling) as soon as possible, starting with 5-10 min and walk-in up to 20-30 minute q.day Abdominal core and back strengthening exercises may help to prevent future problems (6) Lumbar disc herniation with radiculopathy: Code(s): M51.16 - Intervertebral disc disorders with radiculopathy, lumbar region Category: Medical Plan: Repeat lumbar spine MRI done in August 2022 revealed worsened broad-based central disc protrusion at the L4-L5 level with a small extruded component disc migrating inferiorly into the right lateral recess. Broad-based disc protrusion flattens the ventral thecal sac and compresses the L5 nerve roots bilaterally. There are chronic disc degeneration and broad-based large central to left subarticular zone disc protrusion at L5-S1 with significant compression and posterior displacement of the left S1 nerve root and mass effect upon the right S1 nerve root. The previous extruded component disc has resorbed since the prior study (7) Perforation of nasal septum: Code(s): J34.89 - Other specified disorders of nose and nasal sinuses Category: Medical Plan: Continue mupirocin ointment and refrain from picking nose (8) Nasal ulcer: Code(s): J34.0 - Abscess, furuncle and carbuncle of nose Category: Medical Plan: Same as above (9) Tinea pedis: Code(s): B35.3 - Tinea pedis Category: Medical Qualifiers: Laterality: bilateral Qualified Code(s): B35.3 - Tinea pedis Plan: Starts terbinafine topical b.i.d. (10) RAFAEL (obstructive sleep apnea): Code(s): G47.33 - Obstructive sleep apnea (adult) (pediatric) Category: Medical Plan: Continue CPAP Plan The plan for the nasal symptoms includes monitoring the condition and considering further biopsy under anesthesia intervention if necessary, although the patient is currently hesitant about further testing. A follow-up with the ENT specialist is advised to reassess the need for further treatment based on symptom progression. For the skin condition, identified as eczema with a possible fungal component, a topical antifungal cream has been prescribed to address the fungal aspect before considering steroid treatment. The patient is advised to apply the cream twice daily and monitor for improvement. Continue wearing CPAP machine, continue conservative treatment for back pain. Preventative care measures include considering a dermatology referral for further evaluation of the skin condition if it does not improve with current treatment. The patient is also encouraged to update vaccinations, particularly the Tdap, given the last dose was over 10 years ago. Patient was informed and verbally consented to the use of an ambient scribe for clinic note documentation during this visit. Medications: New terbinafine HCl 1% 1 appl topical BID 30 grams 0RF
--- OUTSIDE RECORDS SUMMARY | 2024-11-13 14:36 | XMS_ITS | Encounter Summary ---
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 Role Phone Unavailable Primary Care Provider Unavailabl e Encounter Details Date Type Department Care Team (Late st Contact Info) Description 11/24/2016 Conversion Encounter [facility] - [address] [id number] Social History Tobacco Use Types Packs/Day Years Used Date Smoking Tobacco: Never Assessed Sex and Gender Information Value Date Recorded Sex Assigned at Not on file Legal Sex Male 4:29 PM EDT Gender Identity Not on file Sexual Orientation Not on file documented as of this encounter Plan of Treatment Not on file documented as of this encounter Visit Diagnoses Not on filedocumented in this encounter
== END 2024-11-13 15:11 | disposition home or self-care (01) ==
LOC: HO.HMCH 14:01
PROVIDERS: PCP Internal Medicine
DX: Z00.00 Encounter for general adult medical examination without abnormal findings (principal); E66.3 Overweight; J34.0 Abscess, furuncle and carbuncle of nose; R09.81 Nasal congestion; M54.50 Low back pain, unspecified; M51.16 Intervertebral disc disorders with radiculopathy, lumbar region; J34.89 Other specified disorders of nose and nasal sinuses; B35.3 Tinea pedis; G47.33 Obstructive sleep apnea (adult) (pediatric)

== ENCOUNTER → 2024-11-13 14:00 | Outpatient (BNVA) | payer OTHER, SELFPAY | PROVIDERS: PCP Internal Medicine | DX: Z00.00 Encounter for general adult medical examination without abnormal findings (principal); R19.7 Diarrhea, unspecified; J34.0 Abscess, furuncle and carbuncle of nose; R09.81 Nasal congestion; M51.16 Intervertebral disc disorders with radiculopathy, lumbar region; J34.89 Other specified disorders of nose and nasal sinuses; B35.3 Tinea pedis; E66.3 Overweight; G47.33 Obstructive sleep apnea (adult) (pediatric); Z99.89 Dependence on other enabling machines and devices; Z68.26 Body mass index [BMI] 26.0-26.9, adult | CPT/HCPCS: 99395 ==

== ENCOUNTER 2025-01-15 12:14 | Outpatient (REF) | payer MEDICAID, SELFPAY ==
[2025-01-15 12:27] LABS: MANUAL DIFF FLAG NO
[2025-01-15 12:42] LABS: Hematocrit 42.2 % (42.0-52.0); Hemoglobin 14.6 g/dl (14.0-18.0); Imm Gran Abs Auto 0.01 X10*3/uL (0.00-0.03); Imm Gran Pct Auto 0.2 % (0.0-0.4); Lymphocytes Absolute Auto 1.6 X10*3/uL (1.2-4.9); Mean Corpuscular HGB Conc 34.6 g/dl (31.0-36.0); Mean Corpuscular Hemoglobin 29.6 pg (27.0-33.0); Mean Corpuscular Volume 85.6 fL (80.0-98.0); NRBC Abs Auto 0.000 X10*3/uL (0.0-0.012); NRBC Pct Auto 0.0 /100WBC (0.0-0.2); Platelet Count 274 X10*3/uL (160-400); Red Blood Count 4.93 X10*6/uL (4.60-5.80); White Blood Count 6.0 X10*3/uL (4.8-10.8)
[2025-01-15 14:42] LABS: Alanine Aminotransferase 16 U/L (0-40); Albumin Level 4.5 g/dL (3.5-5.0); Alkaline Phosphatase 70 U/L (39-117); Anion Gap 8 (12-20); Aspartate Amino Transferase 18 U/L (5-37); Blood Urea Nitrogen 15 mg/dL (9-16); Calcium 9.5 mg/dL (8.4-10.2); Carbon Dioxide 27 mmol/L (22-29); Chloride 110 mmol/L (96-108); Cholesterol 153 mg/dL (<200); Estimated Glomerular Filt Rate > 60; HDL Cholesterol 41 mg/dL (>40); Potassium 4.2 mmol/L (3.3-5.1); Sodium 141 mmol/L (135-145); Total Protein 7.1 g/dL (6.5-8.0); Triglycerides 64 mg/dL (<150)
== END 2025-01-15 12:15 | disposition home or self-care (01) ==
LOC: HO.LAB 12:14
PROVIDERS: PCP Internal Medicine; Visit Provider Internal Medicine
DX: Z00.00 Encounter for general adult medical examination without abnormal findings (principal); E78.00 Pure hypercholesterolemia, unspecified; R73.01 Impaired fasting glucose; D64.9 Anemia, unspecified; E55.9 Vitamin D deficiency, unspecified
CPT/HCPCS: 36415; 80053; 80061; 82306; 83036; 84443; 85025